=== PATIENT | male | born 1945 | race Caucasian/White ===

== ENCOUNTER 2022-10-16 08:53 | Inpatient (IN) ==
[2022-10-16] MEDS ORDERED: SODIUM CHLORIDE 0.9% 1,000 ML IV STA (09:22)
[2022-10-16 09:27] LABS: Basophils % 0.2 % (0.0-0.8); Eosinophils % 0.7 % (0.00-10.9); Immature Granulocytes % 0.7 %; Immature Granulocytes Absolute 0.04 #; Lymphocytes # 0.5 10*3/uL (1.4-4.0); Lymphocytes % 8.4 % (21.2-54.2); Mean Corpuscular HGB Conc 35.1 GM/DL (32-36); Mean Corpuscular Volume 93.7 FL (87-102); Mean Platelet Volume 8.7 FL (9.6-12.0); Monocytes # 0.6 10*3/uL (0.11-0.8); Monocytes % 9.2 % (1.7-12.7); Neutrophils % 80.8 % (38.7-73.9); Platelet Count 166 T/CUMM (130-400); Red Blood Count 3.95 MC/CUMM (3.8-5.5); Red Cell Distribution Width 16.3 % (9.3-17.3)
[2022-10-16 09:44] LABS: Alanine Aminotransferase 33 U/L (16-61); Albumin 2.7 G/DL (3.4-5.0); Alkaline Phosphatase 51 U/L (45-117); Aspartate Amino Transferase 26 U/L (0-37); Blood Urea Nitrogen 20 MG/DL (7-18); Calcium 8.3 MG/DL (8.5-10.1); Carbon Dioxide 30 MMOL/L (21-32); Chloride 95 MMOL/L (98-107); Glucose 134 MG/DL (74-106); Osmolality,Calculated 261.1 MOS/KG (273-304); Potassium 4.2 MMOL/L (3.5-5.1); Sodium 128 MMOL/L (136-145); Total Protein 5.5 G/DL (6.4-8.2)
[2022-10-16] MEDS ORDERED: LACTATED RINGERS 1,000 ML IV ONE ×2 (10:02→11:36)
[2022-10-16] MEDS ORDERED: NOREPINEPHRINE 4 MG/4 ML VIAL IV ONE (10:55)
[2022-10-16] MEDS ORDERED: cefTRIAXone 1,000 MG in SODIUM CHLORIDE 0.9% 100 ML IV STA (10:56)
[2022-10-16] MEDS ORDERED: VANCOMYCIN INJ 1,500 MG in SODIUM CHLORIDE 0.9% 500 ML IV STA (10:56)
[2022-10-16] MEDS ORDERED: NOREPINEPHRINE 8 MG in SODIUM CHLORIDE 0.9% 242 ML IV PRN (11:03)
[2022-10-16] MEDS ORDERED: HYDROCORTISONE 100 MG VIAL IV STA (11:37)
[2022-10-16] MEDS ORDERED: ONDANSETRON 4 MG/2 ML VIAL IV PRN (11:37)
[2022-10-16 12:38] VITALS: BP 129/65
[2022-10-16] MEDS: LACTATED RINGERS 1,000 ML IV SCH ×2 (12:38→20:02)
[2022-10-16 13:43] LABS: Bacteria,Urine Occasional /HPF (Few); Bilirubin,Urine Negative (Negative); Blood, Urine Negative (Negative); Glucose,Urine (UA) Negative (Negative); Ketones,Urine Trace mg/dL (Negative); Mucus,Urine Occasional /LPF (Occasional); Nitrite,Urine Negative (Negative); Protein,Urine Negative (Negative); RBC,Urine <1 /HPF (0-4); Squamous Epithelial Cell,Urine Occasional /HPF (0-10); Urine Appearance Clear (Clear); Urine Color Yellow (Yellow); Urine Urobilinogen 0.2 eU/dL (<2.0)
[2022-10-16] MEDS: HYDROCORTISONE 100 MG VIAL IV SCH (20:05)
[2022-10-16] MEDS: ENOXAPARIN 30 MG/0.3 ML SYRINGE SUBCUT SCH (20:06)
[2022-10-17] MEDS: HYDROCORTISONE 100 MG VIAL IV SCH ×3 (03:56→20:10)
[2022-10-17] MEDS: LACTATED RINGERS 1,000 ML IV SCH ×3 (04:24→22:11)
[2022-10-17 07:10] LABS: Basophils % 0.2 % (0.0-0.8); Hematocrit 36.7 VOL% (42.0-52.0); Hemoglobin 12.9 GM/DL (14.0-18.0); Immature Granulocytes % 0.8 %; Immature Granulocytes Absolute 0.05 #; Lymphocytes # 0.5 10*3/uL (1.4-4.0); Lymphocytes % 7.4 % (21.2-54.2); Mean Corpuscular HGB Conc 35.1 GM/DL (32-36); Mean Corpuscular Volume 93.1 FL (87-102); Mean Platelet Volume 8.8 FL (9.6-12.0); Monocytes # 0.3 10*3/uL (0.11-0.8); Monocytes % 4.3 % (1.7-12.7); Neutrophils % 87.3 % (38.7-73.9); Platelet Count 175 T/CUMM (130-400); Red Blood Count 3.94 MC/CUMM (3.8-5.5); Red Cell Distribution Width 16.2 % (9.3-17.3); White Blood Count 6.5 T/CUMM (4-12)
[2022-10-17 07:42] LABS: Albumin 2.5 G/DL (3.4-5.0); Bilirubin,Total 0.4 MG/DL (0.20-1.00); Calcium 8.5 MG/DL (8.5-10.1); Osmolality,Calculated 274.8 MOS/KG (273-304); Potassium 3.6 MMOL/L (3.5-5.1); Total Protein 5.5 G/DL (6.4-8.2)
[2022-10-17] MEDS: ESCITALOPRAM 10 MG TABLET PO SCH (08:24)
[2022-10-17] MEDS: PANTOPRAZOLE 40 MG TABLET PO SCH (08:24)
[2022-10-17] MEDS: CLOPIDOGREL 75 MG TABLET PO SCH (08:24)
[2022-10-17] MEDS: cefTRIAXone 1,000 MG in SODIUM CHLORIDE 0.9% 100 ML IV SCH (10:27)
[2022-10-17] MEDS: POTASSIUM BICARB EFFERVESCENT 20 MEQ TAB.EFF PO SCH ×2 (11:53→20:36)
[2022-10-17] MEDS: ENOXAPARIN 30 MG/0.3 ML SYRINGE SUBCUT SCH (20:10)
[2022-10-18] MEDS: HYDROCORTISONE 100 MG VIAL IV SCH ×3 (04:29→19:48)
[2022-10-18 04:34] LABS: Hematocrit 33.7 VOL% (42.0-52.0); Hemoglobin 11.7 GM/DL (14.0-18.0); Immature Granulocytes % 1.4 %; Immature Granulocytes Absolute 0.07 #; Lymphocytes # 0.4 10*3/uL (1.4-4.0); Lymphocytes % 7.6 % (21.2-54.2); Mean Corpuscular HGB Conc 34.7 GM/DL (32-36); Mean Corpuscular Volume 94.7 FL (87-102); Mean Platelet Volume 9.3 FL (9.6-12.0); Monocytes # 0.4 10*3/uL (0.11-0.8); Monocytes % 7.4 % (1.7-12.7); Neutrophils % 83.6 % (38.7-73.9); Platelet Count 156 T/CUMM (130-400); Red Blood Count 3.56 MC/CUMM (3.8-5.5); Red Cell Distribution Width 16.2 % (9.3-17.3); White Blood Count 5.1 T/CUMM (4-12)
[2022-10-18] MEDS ORDERED: METOPROLOL TARTRATE 5 MG/5 ML VIAL IV ONE (05:00)
[2022-10-18 05:09] LABS: Alanine Aminotransferase 23 U/L (16-61); Albumin 2.3 G/DL (3.4-5.0); Alkaline Phosphatase 42 U/L (45-117); Aspartate Amino Transferase 17 U/L (0-37); Bilirubin,Total < 0.39 MG/DL (0.20-1.00); Blood Urea Nitrogen 11 MG/DL (7-18); Calcium 8.4 MG/DL (8.5-10.1); Carbon Dioxide 28 MMOL/L (21-32); Chloride 104 MMOL/L (98-107); Glucose 140 MG/DL (74-106); Osmolality,Calculated 275.7 MOS/KG (273-304); Potassium 3.6 MMOL/L (3.5-5.1); Sodium 138 MMOL/L (136-145)
[2022-10-18] MEDS: LACTATED RINGERS 1,000 ML IV SCH (06:24)
[2022-10-18] MEDS ORDERED: MAGNESIUM SULF RIDER 2 GM/50 ML PREMIX IV ONE ×2 (07:05→09:40)
[2022-10-18] MEDS: PANTOPRAZOLE 40 MG TABLET PO SCH (08:48)
[2022-10-18] MEDS: ENOXAPARIN 40 MG/0.4 ML SYRINGE SUBCUT SCH (08:48)
[2022-10-18] MEDS: ESCITALOPRAM 10 MG TABLET PO SCH (08:48)
[2022-10-18] MEDS: CLOPIDOGREL 75 MG TABLET PO SCH (08:48)
[2022-10-18] MEDS: cefTRIAXone 1,000 MG in SODIUM CHLORIDE 0.9% 100 ML IV SCH (09:04)
[2022-10-18] MEDS: POTASSIUM BICARB EFFERVESCENT 20 MEQ TAB.EFF PO SCH (10:00)
[2022-10-18] MEDS: POTASSIUM CHLORIDE 20 MEQ TABLET PO SCH (10:37)
[2022-10-18] MEDS: METOPROLOL TARTRATE 25 MG TABLET PO SCH ×2 (10:37→21:11)
[2022-10-18] MEDS ORDERED: ZINC OXIDE PASTE 113 GM TUBE TOP PRN (12:10)
[2022-10-19 05:42] LABS: Basophils % 0.5 % (0.0-0.8); Hematocrit 35.5 VOL% (42.0-52.0); Hemoglobin 12.3 GM/DL (14.0-18.0); Immature Granulocytes % 1.5 %; Immature Granulocytes Absolute 0.06 #; Lymphocytes # 0.5 10*3/uL (1.4-4.0); Lymphocytes % 12.4 % (21.2-54.2); Mean Corpuscular HGB Conc 34.6 GM/DL (32-36); Mean Corpuscular Volume 94.2 FL (87-102); Mean Platelet Volume 9.1 FL (9.6-12.0); Monocytes # 0.4 10*3/uL (0.11-0.8); Monocytes % 9.4 % (1.7-12.7); Neutrophils % 75.2 % (38.7-73.9); Platelet Count 158 T/CUMM (130-400); Red Blood Count 3.77 MC/CUMM (3.8-5.5); Red Cell Distribution Width 16.4 % (9.3-17.3)
[2022-10-19 06:02] LABS: Alanine Aminotransferase 25 U/L (16-61); Albumin 2.4 G/DL (3.4-5.0); Alkaline Phosphatase 43 U/L (45-117); Aspartate Amino Transferase 19 U/L (0-37); Bilirubin,Total < 0.39 MG/DL (0.20-1.00); Blood Urea Nitrogen 14 MG/DL (7-18); Calcium 8.2 MG/DL (8.5-10.1); Carbon Dioxide 28 MMOL/L (21-32); Chloride 105 MMOL/L (98-107); Glucose 98 MG/DL (74-106); Osmolality,Calculated 277.5 MOS/KG (273-304); Potassium 3.7 MMOL/L (3.5-5.1); Sodium 139 MMOL/L (136-145)
[2022-10-19] MEDS: HYDROCORTISONE 100 MG VIAL IV SCH (08:53)
[2022-10-19] MEDS: POTASSIUM CHLORIDE 20 MEQ TABLET PO SCH (08:54)
[2022-10-19] MEDS: METOPROLOL TARTRATE 25 MG TABLET PO SCH (08:54)
[2022-10-19] MEDS: ENOXAPARIN 40 MG/0.4 ML SYRINGE SUBCUT SCH (08:54)
[2022-10-19] MEDS: CLOPIDOGREL 75 MG TABLET PO SCH (08:54)
[2022-10-19] MEDS: ESCITALOPRAM 10 MG TABLET PO SCH (08:54)
[2022-10-19] MEDS: PANTOPRAZOLE 40 MG TABLET PO SCH (08:57)
[2022-10-19] MEDS: cefTRIAXone 1,000 MG in SODIUM CHLORIDE 0.9% 100 ML IV SCH (10:06)
== END 2022-10-19 11:06 | disposition home health service (06) | DRG 682 ==
LOC: EDBD → EDUNIT# → N.ED 08:53 → SUATTDRO 11:37 → N.EDINP 11:37 → N.ICU 12:38
PROVIDERS: ADMIT Family Medicine; ATTEND Internal Medicine